=== PATIENT | male | born 1980 | race Caucasian/White ===

== ENCOUNTER → 2024-07-12 16:38 | Outpatient (REF) | payer OTHER, SELFPAY | LOC: RAD 16:38 | PROVIDERS: ATTENDING PHYSICIAN Nurse Practitioner Family | DX: R06.02 Shortness of breath (principal); R05.3 Chronic cough; R60.0 Localized edema; R53.83 Other fatigue | CPT/HCPCS: 71046 ==

== ENCOUNTER → 2024-07-13 13:06 | Outpatient (REF) | payer OTHER, SELFPAY | LOC: RCS 13:06 | PROVIDERS: ATTENDING PHYSICIAN Nurse Practitioner Family | DX: R06.02 Shortness of breath (principal); R05.3 Chronic cough; R60.0 Localized edema; R53.83 Other fatigue | CPT/HCPCS: 93005 ==